=== PATIENT | male | born 1945 | race Caucasian/White ===

== ENCOUNTER 2023-12-30 18:00 | Inpatient (IN) | payer MEDICARE, OTHER ==
[~2023-12-30] VITALS: Ht 167.6 cm; Wt 108.9 kg
[2023-12-30 19:35] VITALS: BP 138/70; TEMP 98.1; O2SAT 97
[2023-12-30] MEDS ORDERED: REMEDY ESSENTIAL ZINC PASTE 113 GM TOP PRN (20:00)
[2023-12-30] MEDS ORDERED: DOXY100C IV (20:30)
[2023-12-30] MEDS ORDERED: MAG-83 PO (20:30)
[2023-12-30] MEDS ORDERED: MAGN400O6 PO (20:30)
[2023-12-30] MEDS ORDERED: ALLO300T2 PO (20:30)
[2023-12-30] MEDS ORDERED: DILT240C88 PO (20:30)
[2023-12-30] MEDS ORDERED: APIX5TAB PO (20:30)
[2023-12-30] MEDS ORDERED: ACET-3117 PO (20:30)
[2023-12-30] MEDS ORDERED: ASPI-495 PO (20:30)
[2023-12-30] MEDS ORDERED: CEFT1PIG2 IV (20:30)
[2023-12-30] MEDS ORDERED: ATOR10TA PO (20:30)
[2023-12-30] MEDS ORDERED: DOXA2TAB PO (20:30)
[2023-12-30] MEDS ORDERED: FURO-151 PO (20:30)
[2023-12-30] MEDS ORDERED: HYDR-3972 PO (20:30)
[2023-12-30] MEDS ORDERED: POTA-88 PO (21:00)
[2023-12-30] MEDS ORDERED: PREG50CA PO (21:00)
[2023-12-30] MEDS ORDERED: ONDA-104 IV (21:00)
[2023-12-30] MEDS ORDERED: PANT40TA49 PO (21:00)
[2023-12-31 05:45] VITALS: BP 126/74; TEMP 98.1; O2SAT 96
[2023-12-31] MEDS ORDERED: ONDANSETRON HCL 4 MG TABLET PO PRN (10:00)
[2023-12-31] MEDS ORDERED: HYDROCODONE/APAP 5-325MG TABLET PO PRN (10:00)
[2023-12-31] MEDS ORDERED: MAG HYDROX/AL HYDROX/SIMETH 30 ML LIQUID UDC PO PRN (10:00)
[2023-12-31] MEDS: DILTIAZEM HCL CD 240 MG CAP.SR.24H PO SCH (10:33)
[2023-12-31] MEDS: FUROSEMIDE 40 MG TABLET PO SCH (10:33)
[2023-12-31] MEDS: ASPIRIN EC 81 MG TABLET.DR PO SCH (10:33)
[2023-12-31] MEDS: PREGABALIN 25 MG CAPSULE PO SCH (10:33)
[2023-12-31] MEDS: ALLOPURINOL 300 MG TABLET PO SCH (10:33)
[2023-12-31] MEDS: APIXABAN 5 MG TABLET PO SCH (10:34)
[2023-12-31] MEDS: DOXYCYCLINE HYCLATE IV 100 MG in IV DEXTROSE 5% 100 ML IV SCH (12:32)
[2023-12-31] MEDS: CEFTRIAXONE 1 G in IV DEXTROSE 5% 50 ML IV SCH (12:35)
[2023-12-31 16:00] VITALS: BP 119/60; TEMP 98.6; O2SAT 95
[2023-12-31] MEDS: ATORVASTATIN 10 MG TABLET PO SCH (20:25)
[2023-12-31] MEDS: DOXYCYCLINE HYCLATE 100 MG TABLET PO SCH (20:27)
[2023-12-31] MEDS: DOXAZOSIN 2 MG TABLET PO SCH (20:27)
[2023-12-31 21:47] VITALS: BP 125/67; TEMP 98.2; O2SAT 100
[2023-12-31] MEDS: MAGNESIUM HYDROXIDE 30 ML LIQUID UDC PO PRN (21:57)
[2024-01-01 04:54] VITALS: BP 128/71; TEMP 98.2; O2SAT 99
[2024-01-01] MEDS: PANTOPRAZOLE SODIUM 40 MG TABLET.DR PO SCH (06:24)
[2024-01-01 07:29] VITALS: BP 125/69; TEMP 98.4; O2SAT 98
[2024-01-01 15:21] VITALS: BP 122/73; TEMP 98; O2SAT 99
[2024-01-01 19:48] VITALS: BP 131/61; TEMP 98.5; O2SAT 95
[2024-01-02 04:50] VITALS: BP 137/70; TEMP 98.4; O2SAT 95
[2024-01-02 15:33] VITALS: BP 129/60; TEMP 97.5; O2SAT 97
[2024-01-02 20:20] VITALS: BP 118/79; TEMP 98.2; O2SAT 100
[2024-01-03 05:45] VITALS: BP 120/69; TEMP 98.2; O2SAT 100
[2024-01-03 08:32] VITALS: BP 143/79; TEMP 98.1; O2SAT 96
[2024-01-03 08:37] VITALS: BP 143/74; TEMP 96.1; O2SAT 96
[2024-01-03 12:00] VITALS: BP 143/76; TEMP 98.2; O2SAT 97
[2024-01-03 16:00] VITALS: BP 130/73; TEMP 97.6; O2SAT 98
[2024-01-04 06:11] VITALS: BP 140/72; TEMP 98; O2SAT 95
[2024-01-04 16:06] VITALS: BP 129/61; TEMP 98; O2SAT 96
[2024-01-04 20:18] VITALS: BP 126/69; TEMP 97.9; O2SAT 97
[2024-01-05 04:10] VITALS: BP 157/77; TEMP 97.8; O2SAT 94
[2024-01-05 11:45] VITALS: BP 125/65; TEMP 98.1
== END 2024-01-05 13:25 | disposition home health service (06) | DRG 291 ==
PROVIDERS: ADMIT Physical Medicine & Rehabilitation Pain Medicine; ATTEND Physical Medicine & Rehabilitation Pain Medicine
DX: I13.0 Hypertensive heart and chronic kidney disease with heart failure and stage 1 through stage 4 chronic kidney disease, or unspecified chronic kidney disease (principal); I50.33 Acute on chronic diastolic (congestive) heart failure; J15.9 Unspecified bacterial pneumonia; N17.0 Acute kidney failure with tubular necrosis; D68.59 Other primary thrombophilia; I48.20 Chronic atrial fibrillation, unspecified; L03.116 Cellulitis of left lower limb; L03.115 Cellulitis of right lower limb; I11.0 Hypertensive heart disease with heart failure; I48.91 Unspecified atrial fibrillation; N40.0 Benign prostatic hyperplasia without lower urinary tract symptoms; Z68.38 Body mass index [BMI] 38.0-38.9, adult; E66.01 Morbid (severe) obesity due to excess calories; Z95.0 Presence of cardiac pacemaker; Z88.1 Allergy status to other antibiotic agents; N18.9 Chronic kidney disease, unspecified; Z85.72 Personal history of non-Hodgkin lymphomas; E11.22 Type 2 diabetes mellitus with diabetic chronic kidney disease; Z86.718 Personal history of other venous thrombosis and embolism; E11.65 Type 2 diabetes mellitus with hyperglycemia; Z79.01 Long term (current) use of anticoagulants; Z86.73 Personal history of transient ischemic attack (TIA), and cerebral infarction without residual deficits; S81.802A Unspecified open wound, left lower leg, initial encounter; S81.801A Unspecified open wound, right lower leg, initial encounter; X58.XXXA Exposure to other specified factors, initial encounter; Y93.9 Activity, unspecified; Y92.89 Other specified places as the place of occurrence of the external cause; Z88.8 Allergy status to other drugs, medicaments and biological substances
CPT/HCPCS: 97535-GO-CO; A4663; J0696; J3490